=== PATIENT | female | born 1980 | race Caucasian/White ===

== ENCOUNTER 2017-10-18 13:09 | Emergency (ER) | payer OTHER ==
[2017-10-18] MEDS: IBUPROFEN 600 MG TAB PO (15:32)
== END 2017-10-18 15:40 | disposition home or self-care (01) ==
LOC: FTE 13:09
DX: S61.411A Laceration without foreign body of right hand, initial encounter (principal); W26.8XXA Contact with other sharp object(s), not elsewhere classified, initial encounter; Y92.9 Unspecified place or not applicable
CPT/HCPCS: 12001; 99283-25